=== PATIENT | female | born 1945 | race Caucasian/White ===

== ENCOUNTER 2020-02-15 13:57 | Emergency (ER) | payer MEDICARE, OTHER, SELFPAY ==
[2020-02-15 14:12] VITALS: BP 163/73; PULSE 83; RESP 12; TEMP 36.9; O2SAT 99
--- NOTE | 2020-02-15 14:16 | DI.RAD.S_ITS ---
PROCEDURE: XR KNEE RT 3V INDICATIONS: fall onto right knee increase pain TECHNIQUE: Three views of the knee were acquired. COMPARISON: [facility], , KNEE 3V RIGHT, 09/14/2010, 19:51. FINDINGS: Bones: No fractures or dislocations. Tricompartment joint space loss and moderate marginal spur formation, most severe in the medial and patellofemoral compartments. No suspicious bony lesions. Soft tissues: No joint effusion. No suspicious soft tissue calcifications. IMPRESSION: 1. No acute fracture. 2. Moderate tricompartment osteoarthritic changes. Dictated by: Mine Hastings M.D. on 02/15/2020 at 13:50 Approved by: Mine Hastings M.D. on 02/15/2020 at 13:52
--- NOTE | 2020-02-15 23:03 | ED.LOWEXIN ---
HPI - Extremity Injury (Lower) <CARMEN Cadet - Last Filed: 02/15/20 23:20> General Chief Complaint: Extremity Injury, Lower Stated Complaint: Fell On Right Knee Time Seen by Provider: 02/15/20 15:49 Source: patient Mode of arrival: Wheelchair Limitations: no limitations History of Present Illness HPI Narrative: This is a 74-year-old female, nonsmoker, who has a history of hip and back pain with weakness and sees [facility] doctor presents to ED with right knee and elbow and anterior shoulder pain after she sustained a fall last night. Patient reports she accidentally had ground level fall after her left foot got caught on something and landed on her right knee and elbow. She is not currently taking anticoagulants. She denies injuring her head or other areas. Patient reports right knee pain is around patella and worse in medial region. She reports pain worsens with bearing weight and flexion. She reports intact sensation. She had taken Naprosyn 2 tests last night and had used ice pack after the injury. Patient has a physical therapy appointment starting this week for hip and back pain. Related Data Home Medications Medication Instructions Recorded Confirmed MUPIROCIN 2% - 15 gm TOPICAL PRN #0 09/21/10 01/12/18 (#BACTROBAN 2%) VITAMIN D (Vitamin D3) 5,000 unit PO BID #0 09/21/10 01/12/18 losartan 25 mg PO QDAY #0 03/11/17 01/12/18 aspirin 81 mg tablet,delayed 81 mg PO DAILY 01/12/18 01/12/18 release astaxanthin 4 mg capsule mg PO cap 01/12/18 01/12/18 biotin 2,500 mcg capsule 2,500 mcg PO DAILY 01/12/18 01/12/18 calcium carbonate 500 mg calcium 500 mg PO ONCE tab 01/12/18 01/12/18 (1,250 mg) tablet clotrimazole 1 % topical cream 1 applictn TOP BID 01/12/18 01/12/18 coenzyme Q10 100 mg capsule 100 mg PO DAILY 01/12/18 01/12/18 mecobalamin (vitamin B12) 1,000 1,000 mcg SL DAILY 01/12/18 01/12/18 mcg disintegrating tablet,sublingual Previous Rx's Medication Instructions Recorded azelastine 137 mcg (0.1 %) nasal 2 spray NASAL BID #30 ml 01/12/18 spray aerosol mometasone 50 mcg/actuation nasal 2 spray NASAL DAILY #17 gram 01/12/18 spray clobetasol 0 TOPICAL SEE INSTRUCTIONS #30 gm 04/25/18 Allergies Allergy/AdvReac Type Severity Reaction Status Date / Time adhesive [ADHESIVE] Allergy Unknown Verified 02/15/20 14:15 baclofen [BACLOFEN] Allergy Unknown Verified 02/15/20 14:15 topiramate [From TOPAMAX] Allergy Unknown Verified 02/15/20 14:15 Review of Systems <CARMEN Cadet - Last Filed: 02/15/20 23:20> Review of Systems Narrative: General: Denies fever, chills, fatigue, malaise, sweats. HEENT: Denies sinus pain, ear pain, sore throat, difficulty swallowing, dizziness. Respiratory: Denies dyspnea, cough, wheezing, hemoptysis, sputum. Cardiovascular: Denies chest pain, palpitations, orthopnea, edema. Gastrointestinal: Denies nausea, vomiting, abdominal pain, diarrhea, constipation, melena. : Denies dysuria, frequency, incontinence, hematuria, urinary retention. Musculoskeletal: See HPI Skin: Denies rash, skin lesions, or other. Neurologic: Denies weakness, headache, numbness, change in speech, confusion, seizures, incoordination. Psychiatric: No concerning psychosocial issues. 12-point review of systems is negative except for those stated above. Patient History <CARMEN Cadet - Last Filed: 02/15/20 23:20> Medical History Asthma (Acute) GERD (gastroesophageal reflux disease) (Acute) Hip pain (Acute) Hypothyroidism (Acute) Low back pain (Acute) Surgical History Status post breast lumpectomy Status post hysterectomy Social History Smoking Status: Never smoker Smoking Status: Never smoker alcohol intake frequency: a few times a month Substance Use Type: does not use Exam <CARMEN Cadet - Last Filed: 02/15/20 23:20> Narrative Exam Narrative: General appearance: well developed, well nourished, in no acute distress. Head: normocephalic, atraumatic, no scalp lesions, non-tender. ENT: Hearing grossly intact. Nose without bleeding, purulent discharge. Airway patent. Neck/Thyroid: neck supple, full range of motion, no visible masses or meningeal signs. No JVD, non-tender without lymphadenopathy. Skin: Light ecchymosis on right patella. No suspicious rashes, lesions over visible areas. Warm and dry and appropriate color for ethnicity. Heart: no clubbing, no cyanosis, no edema. S1 and S2 normal. RRR w/o murmurs, clicks, or bruits. Lungs: Breathing even and unlabored. No stridor. No accessory muscles used. Able to speak in full sentences. Chest: normal shape and expansion. Abdomen: non-obese, non-distended. Neurologic: alert and oriented. Cognitive exam, [employer] and PNS grossly intact on informal exam. Psych: good eye contact, normal affect. Initial Vital Signs Initial Vital Signs: Vital Signs Temperature 98.4 F 02/15/20 14:12 Pulse Rate 83 02/15/20 14:12 Respiratory Rate 12 02/15/20 14:12 Blood Pressure 163/73 H 02/15/20 14:12 Pulse Oximetry 99 02/15/20 14:12 Extrem Right upper extremity: shoulder/upper arm Details: normal to inspection; no tenderness and no swelling, elbow/forearm Details: normal to inspection, tenderness Location: of the olecranon, normal ROM and distal pulses intact; no swelling, no unusual warmth, no abrasions, no lacerations, no ecchymosis and no deformity and wrist Details: normal to inspection; no tenderness and no swelling Right lower extremity: hip/thigh Details: no tenderness, knee Details: abnormal to inspection, tenderness Location: of the patella and of the medial joint line, swelling Location: of the patella, abnormal ROM Details: pain with active ROM during and pain with passive ROM during, knee ligament exam abnormal Details: anterior drawer test normal, valgus stress test normal and Josiah's test normal, Maxwell's Test Details: positive medially and laterally and ecchymosis (Around patella); no abrasions, no lacerations, no crepitus, no deformity and no unusual warmth, lower leg Details: normal to inspection; no tenderness and ankle Details: normal to inspection; no tenderness <Sivan Richards DO - Last Filed: 02/21/20 07:32> Initial Vital Signs Initial Vital Signs: Vital Signs Temperature 98.4 F 02/15/20 14:12 Pulse Rate 83 02/15/20 14:12 Respiratory Rate 12 02/15/20 14:12 Blood Pressure 163/73 H 02/15/20 14:12 Pulse Oximetry 99 02/15/20 14:12 Procedures <CARMEN Cadet - Last Filed: 02/15/20 23:20> Orthopedic Splinting/Casting Injury #1: Side: right Lower Extremity Injury Location: knee Lower Extremity Immobilizer: knee immobilizer Other Orthopedic Equipment: walker Post splinting neuro exam: intact Post splinting vascular exam: intact Placed by: Nursing Scores <CARMEN Cadet - Last Filed: 02/15/20 23:20> GCS [place] coma scale eye opening: Spontaneous [place] coma scale verbal response: Orientated [place] coma scale motor response: Obey commands [place] coma scale total score: 15 Course <CARMEN Cadet - Last Filed: 02/15/20 23:20> Orders Ordered: ED Orders 02/15/20 14:16 XR knee RT 3V Stat <Sivan Richards DO - Last Filed: 02/21/20 07:32> Orders Ordered: ED Orders 02/15/20 14:16 XR knee RT 3V Stat MDM - Extremity Injury (Lower) <CARMEN Cadet - Last Filed: 02/15/20 23:20> Differential Diagnosis Differential diagnosis: Likely other (Knee sprain, knee contusion, patellar fracture, elbow contusion) Medical Records Attestation: I reviewed the patient's medical records. Imaging Data XR-Knee RT: Radiologist's Impression: [address] [address] XRay Report Signed Patient: Vibha Pulido#: [id number] : 1946Acct:[id number] Age/Sex: 74 / FDate of Service: 02/15/20 Loc: ED Accession Number: [id number] Procedure: XR knee RT 3V Ordering Provider: Sivan Richards D.O. PROCEDURE: XR KNEE RT 3V INDICATIONS: fall onto right knee increase pain TECHNIQUE: Three views of the knee were acquired. COMPARISON: [facility], , KNEE 3V RIGHT, 09/14/2010, 19:51. FINDINGS: Bones: No fractures or dislocations. Tricompartment joint space loss and moderate marginal spur formation, most severe in the medial and patellofemoral compartments. No suspicious bony lesions. Soft tissues: No joint effusion. No suspicious soft tissue calcifications. IMPRESSION: 1. No acute fracture. 2. Moderate tricompartment osteoarthritic changes. Dictated by: Mine Hastings M.D. on 02/15/2020 at 13:50 Approved by: Mine Hastings M.D. on 02/15/2020 at 13:52 MDM Narrative Medical decision making narrative: This is a 74-year-old female who presents to ED with right patella and medial knee pain with ecchymosis and right elbow pain after she had tripped and fell on right knee and elbow yesterday. Patient is able to flex and extend right arm without difficulty. No deformity, swelling, focal tender point appreciated during physical exam on right elbow. Physical exam on right knee appreciated tender to palpate around the patella and medial knee region and mild swelling and ecchymosis. X-ray test was negative for fractures or dislocation, joint effusion but appreciated moderate try compartment osteoarthritis changes. Patient has intact sensation, pedal pulse in right foot distally. Patient elected to use knee immobilizer for support and pain. She reports does not do well with crutches and elected to use a walker for weight-bearing as needed. Patient advised to follow-up with physical therapy as scheduled and contact [facility] doctor if pain does not subside as expected. Patient advised to use RICE therapy and [id number] Tylenol and or Motrin as needed. Return precautions were discussed with patient and patient verbalized understanding and in agreement with treatment plan. Discharge Plan Departure Patient Disposition: Home Clinical Impression: Contusion of knee, left Qualifiers: Encounter type: initial encounter Qualified Code(s): S80.02XA - Contusion of left knee, initial encounter Contusion of elbow, left Qualifiers: Encounter type: initial encounter Qualified Code(s): S50.02XA - Contusion of left elbow, initial encounter Fall Qualifiers: Encounter type: initial encounter Qualified Code(s): W19.XXXA - Unspecified fall, initial encounter Discharge Date/Time: 02/15/20 17:14 Instructions: DI for Contusion, DI for Knee Pain Activity Restrictions/Additional Instructions: You have been diagnosed with pain in knee and elbow from fall likely from left knee contusion, elbow contusion. Knee x-ray test does not show acute findings her but arthritis.]. What to do: *Take your medications as directed. You can take [id number] Tylenol and or Motrin as needed for discomfort. Tylenol 650-1000 mg up to 3 to 4 times a day as needed for pain. Ibuprofen 400-600 mg up to 3 times a day as needed for pain and inflammation with food to decrease GI irritation. You can take [id number] omeprazole as needed for GI irritation. Please use RICE therapy. *Follow up with your primary care provider in 2-3 days, call for an appointment. Let them know you were seen in the ED and that we asked you to be seen in follow up. If pain persists 10-14 days, may require additional imaging test. *Return to ED if you have any new, worsening, or concerning symptoms, such as [worsening pain, tingling/numbness/weakness to affected leg, chest pain, breathing difficulty, or any acute concerns]. Prescriptions: No Action aspirin 81 mg tablet,delayed release (DR/EC) 81 mg PO DAILY RF: 0 astaxanthin 4 mg capsule PO RF: 0 biotin 2,500 mcg capsule 2,500 mcg PO DAILY RF: 0 calcium carbonate [Calcium 500] 500 mg calcium (1,250 mg) tablet 500 mg PO ONCE RF: 0 clotrimazole 1 % cream 1 applictn TOP BID RF: 0 coenzyme Q10 100 mg capsule 100 mg PO DAILY RF: 0 mecobalamin (vitamin B12) 1,000 mcg tablet,disintegrating 1,000 mcg SL DAILY RF: 0 mometasone [Nasonex] 50 mcg/actuation spray,non-aerosol 2 spray NASAL DAILY Qty: 17 RF: 0 azelastine 137 mcg (0.1 %) aerosol,spray 2 spray NASAL BID Qty: 30 RF: 0 VITAMIN D (Vitamin D3) 5,000 unit PO BID Qty: 0 RF: 0 MUPIROCIN 2% - (#BACTROBAN 2%) 15 gm Topical PRN Qty: 0 RF: 0 losartan 25 MG tablet 25 mg PO QDAY Qty: 0 RF: 0 clobetasol 0.05 % ointment 0 Topical SEE INSTRUCTIONS Qty: 30 RF: 2 Referrals: Emery Ziegler MD [Primary Care Provider] - <Sivan Richards DO - Last Filed: 02/21/20 07:32> Cosign ED Attending Cosignature Attestation: I was immediately available in the department for consultation. Documentation has been reviewed. I agree with assessment and plan.
== END 2020-02-15 17:14 | disposition home or self-care (01) ==
PROVIDERS: Emergency Provider Nurse Practitioner Family; PCP Internal Medicine
DX: S80.02XA Contusion of left knee, initial encounter (principal); S50.02XA Contusion of left elbow, initial encounter; W19.XXXA Unspecified fall, initial encounter
CPT/HCPCS: 73562; 99283

== ENCOUNTER → 2025-03-26 08:58 | Outpatient (CLI) | payer MEDICARE, OTHER, SELFPAY ==
[2025-03-26 10:32] LABS: Vitamin D 25 Hydroxy (D3) 48.3 ng/mL (30.0-100.0)
[2025-03-26 10:34] LABS: Follicle Stimulating Hormone 28.8 mIU/mL
[2025-03-26 10:44] LABS: Cortisol AM (Before 10AM) 11.5 ug/dL (4.46-22.7)
[2025-03-29 13:41] LABS: IGF-1 65 ng/mL (42-185)
[2025-03-30 20:12] LABS: Estradiol, Sensitive <2.5 pg/mL (.)
== END ==
PROVIDERS: PCP Family Medicine; Referring Provider Internal Medicine Endocrinology, Diabetes & Metabolism; Visit Provider Internal Medicine Endocrinology, Diabetes & Metabolism
DX: M81.0 Age-related osteoporosis without current pathological fracture (principal); E06.3 Autoimmune thyroiditis; E22.2 Syndrome of inappropriate secretion of antidiuretic hormone; E23.6 Other disorders of pituitary gland; E87.1 Hypo-osmolality and hyponatremia; E66.3 Overweight; R73.03 Prediabetes
CPT/HCPCS: 36415; 82024; 82306; 82533; 82670; 83001; 83002; 84146; 84305